=== PATIENT | male | born 1970 ===

== ENCOUNTER 2018-02-27 07:30 | Inpatient (IN) | payer OTHER ==
[2017-10-29 10:07] VITALS: BMI 29.6
[2018-03-05] MEDS ORDERED: Absorbable Gelatin Sponge Size 100 ONE ×2 (06:06→07:34)
[2018-03-05] MEDS ORDERED: Bupivacaine 0.25% 20 ML INJ IJ ONE ×2 (06:07→07:31)
[2018-03-05] MEDS ORDERED: Lidocaine/Epinephrine 1% 1:100000 10 ML IJ ONE (06:08)
[2018-03-05] MEDS ORDERED: Thrombin Topical 5,000 Int Units Spray Kit ONE (06:08)
[2018-03-05] MEDS ORDERED: Bacitracin Ointment 30 GM TUBE ONE (06:08)
[2018-03-05] MEDS ORDERED: Bupivacaine Liposomal Inj 20 ml INFIL ONE (07:21)
[2018-03-05] MEDS ORDERED: Bacitracin 50,000 UNIT in Sodium Chloride 0.9% Irrig 1,000 ML IR SCH (07:30)
[2018-03-05] MEDS ORDERED: Propofol 10 mg/ml 2,000 MG/200 ML VIAL ONE (07:35)
--- NOTE | 2018-03-05 08:09 | HP ---
HISTORY OF PRESENT ILLNESS: Mr. Valladares is a 47-year-old gentleman who injured himself from a construction accident. He fell off a roof landing approximately floor below. He fractured his right wrist and injured his back. This occurred on 05/26/2015. Since the accident, he was suffering with intrinsic low back pain in the lumbar area. He had some radiating pain to the left anterolateral thigh, anteromedial calf as well as the right anterior front of the thigh. His pain goes up to an 8 on a 0 to 10 scale, worsening if he is active, he cannot stand too long, he cannot sit too long. He has trouble finding a comfortable position. He has noted the feeling of what he calls tiredness in his low back when he walks. He was not able to return to work. He has failed rather extensive conservative treatment over this time including fair amounts of physiotherapy, he went for he estimates four different injections in his lumbar spine without much benefit. PAST MEDICAL HISTORY: Otherwise unremarkable. ALLERGIES: HE IS ALLERGIC TO ASPIRIN. He has no ongoing medical problems. No surgery other than from the right wrist. He does not smoke. He drinks socially. PHYSICAL EXAMINATION: He has tenderness to palpation in the mid to low lumbar spine. Range of motion is limited in extension, markedly limited in flexion, quite painful, bilateral rotation is limited as well. He does have 5/5 strength in the lower extremities. Straight leg raising on the left produces typical pain to approximately 35 degrees, equivocal on the right. Baseline gait is within normal limits. MRI documents L3-4 with a broad herniation bilateral foraminal stenosis, particularly on the right (L3 nerve root). L4-L5 is markedly desiccated with a broad herniation, bilateral foraminal stenosis, L5-S1 is within normal limits. I had a long discussion with Mr. Valladares, this occurs over several different office visits, giving him the option of operative intervention by diskectomy, decompression, interbody fusion, segmental pedicle screw fixation at the two pathologic levels i.e., L3-4, L4-5. Through a certified court/medical interpreter, we discussed the nature of his problem that he would undergo. We discussed potential risks, complications, realistic chance and excess recovery time, custodial outlook as well as alternatives. All his questions were answered. He fully understood the above and elected to proceed as offered and is now being admitted for L3-4 and L4-5 decompression, fixation and fusion. José Miguel Mcdonough MD
[2018-03-05] MEDS: ceFAZolin IV 1 gm in Dextrose 2 GM/100 ML BAG IVPB ONE ×2 (08:33→09:16)
[2018-03-05] MEDS: Bupivacaine 0.25% Inj(30mL) IJ ONE ×2 (09:10→13:04)
[2018-03-05] MEDS ORDERED: Propofol 10 mg/ml Inj (20 ML) ONE (12:04)
[2018-03-05] MEDS ORDERED: Propofol 10 mg/ml 1,000 MG/100 ML VIAL ONE (12:06)
[2018-03-05] MEDS ORDERED: Sodium Chloride 0.9% 20 ML IV ONE (13:00)
[2018-03-05] MEDS ORDERED: Epoetin Alfa Dialysis 20000 UNIT/ML Inj SC ONE (13:50)
[2018-03-05] MEDS ORDERED: HYDROmorphone 0.5 mg/0.5 ml ISec IVP PRN (13:53)
--- NOTE | 2018-03-05 14:23 | RAD ---
Date of service: 03/05/2018 PROCEDURE: Intraoperative Fluoroscopy. HISTORY: LUM DISC DESEASE FINDINGS: Fluoroscopic assistance was provided for Total fluoroscopic time (continuous mode) utilized during the procedure (seconds). 68.0.Please refer to the operative report from RUDDY Reddy. Total exam DLP: 26.93 (mGy)
[2018-03-05] MEDS: Potassium Ch 20mEq in D5-1/2NS 1,000 ML IV SCH (15:45)
[2018-03-05] MEDS: Ondansetron Hcl 2 mg/2.5 ml Oral Sol GT SCH (20:06)
[2018-03-06] MEDS: Potassium Ch 20mEq in D5-1/2NS 1,000 ML IV SCH ×3 (01:09→20:30)
[2018-03-06] MEDS: Ondansetron Hcl 2 mg/2.5 ml Oral Sol GT SCH ×3 (02:25→21:00)
--- NOTE | 2018-03-06 07:59 | OP ---
Copied To: José Miguel Mcdonough MD Attending MD: José Miguel Mcdonough MD PROCEDURE DATE: 03/05/2018 PREOPERATIVE DIAGNOSIS: Lumbar disk derangement. POSTOPERATIVE DIAGNOSIS Lumbar disk derangement.. PROCEDURE: L3-4, L4-5 decompression diskectomy, interbody fusion, segmental pedicle screw fixation, posterolateral fusion with iliac autograft. SURGEON: José Miguel Mcdonough MD CO-SURGEON: Moe Ramirez MD ANESTHESIA: General endotracheal. ESTIMATED BLOOD LOSS: 1500 mL, 750 mL returned via Cell Saver. COMPLICATIONS: None. JUSTIFICATION: The patient is status post an on-the-job accident, ever since he is suffering from severe low back pain, radiating pain to the extremities. Imaging workup with MRI documented annular tears at both L3-L4, L4-L5. The patient failed rather extensive conservative treatment. He was offered operative intervention by decompression fixation and fusion. The nature of this procedure, the rationale behind it, potential risks, complications, realistic chance, recovery time were discussed with him at length. All his questions were answered. He fully understood all the above, elected to proceed as offered. DESCRIPTION OF PROCEDURE: The patient was brought into the operating room, intubated, anesthetized. He was placed on the OR table in a prone position. He was hooked up to neurophysiological monitoring. Care was taken to protect his face, eyes, endotracheal tube, and all bony prominences. The entire low back was scrubbed with acetone and scrubbed, painted, and draped in usual sterile manner. Incision was localized with lateral fluoroscopy traced out, infiltrated with local anesthetic. An incision was made with a #15 blade knife, carried down to level of the fascia. The Bovie cautery was then used to incise the fascia and strip the paraspinal muscles off the spinous processes and lamina of L3, L4, and L5. The exposure was then widened out laterally bilaterally using Dumont elevators and Bovie cautery to expose the transverse processes of L3, L4, and L5. Bleeding controlled throughout with bipolar cautery. At this point, we performed bone harvestation. A 5-gauge trocar was inserted directly into the right superior posterior iliac crest. Approximately 120 mL of bone marrow were aspirated. This was then spun down to obtain bone marrow mesenchymal cells later used in the fusion. The decompression was begun with the Sandra and Keke rongeur, removing the top of the spinous process of L5, spinous process of L4, and the inferior L3. The Leksell and high-speed drill was used to thin down the bony elements. Laminectomy was then begun at the L4-5 interspace. Thecal sac was identified and protected throughout. Central laminectomy was performed all the way through the inferior two-thirds of the L3 lamina. This was then widened laterally bilaterally to perform generous medial facetectomies bilaterally at L3-4 and L4-5. This was again done with the use of a high-speed drill, various-sized Kerrison rongeurs. Foraminotomies were performed at the exiting L3-4 roots respectively. The L5 roots were uncovered in the canal and decompressed. At this point, the bleeding was controlled throughout with bipolar cautery. The patient had rather extensive venous complex, which entails a somewhat larger blood loss than typical in this procedure. At this point, the left L5 nerve root was gently retracted medially. The L4-5 disk was then incised grossly, emptied of disk material with the use of pituitary rongeurs. Then 8 mm to 11 mm ilene were used to further remove all annulus, disk material, and begin the decortication. We tried a 12, but it would not turn without digging into the endplate, thus we abandoned it. This identical procedure was performed on the right side, after which the disk was packed with bone grafting material, which included chopped up products of decompression, additional allograft, and marrow impregnated collagen hydroxyapatite sponges. A 9 x 11 mm carbon fiber fusion cage was then tapped into the interspace, filled with bone grafting material, until it was well-seated and countersunk and this identical procedure was performed back on the left side. Visual inspection lateral fluoroscopy confirmed excellent position of both these implants. We then began this procedure actually on the right side at L3-4, gently retracting the L4 nerve root medially, incising the disk grossly, emptied of disk material with the use of pituitary rongeurs. Then again straight upbiting curettes were used to remove the central disk herniation as well as lateral disk material. Decortication was then performed of the endplate above and below with a large curette. This identical procedure was then performed back on the left side, after which the disk space was packed with all bone grafting material and again a 9 x 11 mm cage was tapped into the interspace until it was well-seated and countersunk and then again this identical procedure was performed back on the patient's right side, Again, visual inspection lateral fluoroscopy confirmed excellent position of both these implants. At this point, we performed decortication of the lateral elements with a high-speed drill, which included the transverse process, lateral pars facet, lateral facet. We then placed pedicular screws using the technique of identifying the pedicular entrance visually and fluoroscopically using a high-speed drill to get through the cortical layer and passing the gearshift down the barrel of the pedicle into the vertebral body. We then used a ball-tip probe to sound the passage way to ensure there was no evidence of breach. Additionally, the gearshift and screws were stimulated with electrical current to ensure there was no evidence of breach by monitoring lower extremity EMG. Using this technique, we placed 6-mm diameter screws at all 6 points, i.e., the bilateral pedicles of L3, L4, and L5. These were of varying length between 40 and 50 mm. No screw elicited any EMG activity below 20 with the exception of the left L3 screw that the first pass was made a little bit medially, which we documented and aborted and then we obtained some stimulation of the screw and some not at a level of 12. We felt it was due to the previous breach, but we then checked both of course lateral and as well as AP fluoroscopy which showed excellent position of the screw and it could not be palpated internally with a Jaqueline instrument all around the pedicle. At this point, we placed the appropriate-sized titanium jabari into the three screw head receptacles on each side. Locking nuts were placed and torque-wrenched tight. We then packed all remaining grafting material into the lateral gutters to achieve the posterolateral fusion. We then ensure there was no remaining bone or foreign matter in and around the thecal sac. This was completely aligned and filled with thrombinated powdered Gelfoam. We then lastly placed the appropriate-sized cross connector and torque-wrenched its three connect screw locking sites. Final lateral and AP x-ray confirmed excellent position of the entire construct, that is all six screws, two locking rods, and the cross connector. At this point, hemostasis was achieved. The retractors were removed. The muscle reapproximated using interrupted 0 Vicryl. The fascia closed using tight interrupted 0 Vicryl stitch. The wound copiously irrigated with antibiotic solution. Subcu closed with 2-0 Vicryl. The skin closed with running 3-0 Monocryl stitch, benzoin, and Steri-Strips. Dressing was applied. The patient was turned back on to a supine position on a bed. He was easily extubated. He was noted to be moving all groups of both lower extremities with good strength in the recovery room. All counts were correct. Free-running EMG and somatosensory evoked potentials remained stable over the procedure. There were no complications. José Miguel Mcdonough MD
--- NOTE | 2018-03-06 08:33 | CP.PCM.PN ---
Subjective - Date & Time of Evaluation Date of Evaluation: 03/06/18 Time of Evaluation: 08:31 - Subjective Subjective: SPINE - POD #1 Pt resting in bed. Complains of signif pain at surg site. No radicular pain. [employer] not helping much. Voiding via mishra. No flatus yet. VSS. Temp 98-99. Moves all extremities actively. Neuro grossly intact.Plan: Clear liquids until + flatus. Change to oral analgesics. Begin PT Objective - Vital Signs/Intake and Output Vital Signs (last 24 hours): Temp Pulse Resp BP Pulse Ox 98.2 F 73 20 105/63 98 03/06/18 07:40 03/06/18 07:40 03/06/18 07:40 03/06/18 07:40 03/06/18 07:40 Intake and Output: 03/06/18 03/06/18 06:59 18:59 Intake Total 1400 Output Total 1800 Balance -400 - Medications Medications: Current Medications Acetaminophen (Tylenol 325mg Tab) 650 mg PO Q6 PRN PRN Reason: Fever >100.4 F Docusate Sodium (Colace) 100 mg PO BID [facility] Last Admin: 03/05/18 17:06 Dose: 100 mg Ferrous Sulfate (Feosol) 325 mg PO TID [facility] Last Admin: 03/05/18 17:06 Dose: 325 mg Hydromorphone/Sodium Chloride (Dilaudid Staffing Rn) 6 mg IV Q4H PRN; Protocol PRN Reason: Pain, severe (8-10) Last Admin: 03/05/18 15:50 Dose: 6 mg Potassium Chloride/Dextrose/Sod Cl (Potassium Chl 20 Meq In D5-1/2ns) 1,000 mls @ 100 mls/hr IV .Q10H [facility] Last Admin: 03/06/18 01:09 Dose: 100 mls/hr Ondansetron HCl (Zofran) 4 mg GT RQ6 [facility] Last Admin: 03/06/18 02:25 Dose: Not Given
[2018-03-06] MEDS: oxyCODONE 20 mg ER Tab (oxyCONTIN) PO SCH ×2 (09:33→21:24)
[2018-03-06] MEDS: Oxycodone/Acetaminophen 5/325 mg Tab PO PRN ×3 (12:35→19:03)
[2018-03-07] MEDS: Ondansetron Hcl 2 mg/2.5 ml Oral Sol GT SCH ×2 (02:00→07:43)
[2018-03-07] MEDS: Oxycodone/Acetaminophen 5/325 mg Tab PO PRN ×2 (06:02→19:26)
[2018-03-07] MEDS: Potassium Ch 20mEq in D5-1/2NS 1,000 ML IV SCH ×2 (06:38→17:53)
[2018-03-07 08:03] VITALS: RESP 20
[2018-03-07] MEDS ORDERED: Epoetin Alfa Dialysis 20000 UNIT/ML Inj SC ONE (10:00)
[2018-03-07] MEDS: oxyCODONE 20 mg ER Tab (oxyCONTIN) PO SCH ×2 (10:34→21:31)
[2018-03-07] MEDS ORDERED: Ondansetron HCl 4 mg/5 ml Oral Soln GT SCH (14:00)
[2018-03-08 00:44] VITALS: O2SAT 96
[2018-03-08] MEDS: Potassium Ch 20mEq in D5-1/2NS 1,000 ML IV SCH ×3 (02:00→11:30)
[2018-03-08] MEDS: Oxycodone/Acetaminophen 5/325 mg Tab PO PRN (05:48)
[2018-03-08 07:58] VITALS: BP 116/66; PULSE 85; TEMP 98.7
[2018-03-08] MEDS: oxyCODONE 20 mg ER Tab (oxyCONTIN) PO SCH (09:32)
--- NOTE | 2018-03-11 07:12 | OP ---
Copied To: Moe Ramirez MD Attending MD: Moe Ramirez MD PROCEDURE DATE: 03/05/2018 PREOPERATIVE DIAGNOSIS: Disk derangement L3-4, L4-5. POSTOPERATIVE DIAGNOSIS: Disk derangement L3-4, L4-5. OPERATIONS: 1. Posterior lumbar interbody and lateral fusion, L3-4, L4-5. 2. Use of intervertebral device. 3. Use of segmental spinal instrumentation. 4. Use of autograft by means of bone marrow aspiration. SURGEON: Moe Ramirez MD CO-SURGEON: José Miguel Mcdonough MD ANESTHESIA: General endotracheal tube intubation. DESCRIPTION OF PROCEDURE: The patient was brought to the operating room and general anesthesia was achieved. The spinal cord monitor leads were placed throughout the patient's body. Real time monitoring was done by quality systems technician in the room, remote monitoring by physician as well. Sequential compression boots were placed using the patient's legs and intravenous antibiotics were administered. After the antibiotics were given, a Gonzales catheter was inserted. The patient was then gently transferred on to the operating table and placed prone on a Diaz frame keeping his abdomen free from pressure anteriorly. Care was taken to protect the elbows and knees from pressure points and a Steri-Drape was used to seal off the patient's perineal region from the operative field. His back was sterilely prepped and draped. Lidocaine with epinephrine was used to infiltrate the site for the incision as located under fluoroscopy. An incision was then made sharply in the midline. This was taken out subcutaneous tissue using sharp and blunt dissection. Hemostasis was achieved using electrocautery. The fascia was divided and muscle stripped laterally off the spinous processes and lamina out to the level of the transverse prostheses on each side of L3 through L5. Soft tissue attachments were cleared using electrocautery and Dumont elevators. Again, fluoroscopic views were taken which verified we were at the appropriate levels. A Leksell rongeur was used to remove the spinous processes and thinned down the lamina and the laminectomy was then carried out in a caudocephalad fashion. This was first done in the midline and then taken out laterally on each side with foraminotomies being done until we could easily pass a Jaqueline tool out each neural foramina. The disk spaces were identified at L3-4 and L4-5 and the laminectomy carried out widely enough distally until we could easily pass the broach indicative of enough room for subsequent passage of the cages. Hemostasis was achieved with bipolar cautery as well as thrombin in Gelfoam powder. At that time, a trocar was placed in the posterior right ilium and 120 mL of bone marrow aspirate was obtained. This was sterilely passed off to the quality systems technician to process it through the harvest system. The collecting mesenchymal stem cells were then returned to the OR table and used to process through the IC chamber as well as soaked cubes and strips of CONFORM hydroxyapatite sponge. Thrombinated Gelfoam powder was used for hemostasis at the marrow donor site. The patient's laminar bone along with the IC chamber bone and Optium putty were combined to create a bone grafting substrate. We then proceeded with the interbody fusion. The thecal sac was gently retracted and the annulus incised and disk material removed with pituitary rongeur and the endplate ilene up to including a size 11. Ring and spoon curettes were used to remove any remaining tissue from the endplates. We then moved over to the right side, where in similar fashion the annulus was incised and the remaining disk material removed with the endplate ilene and the pituitary rongeur along with the ring and spoon curettes. The bone grafting substrate and marrow-soaked cubes of CONFORM were packed at the disk space and a 9 x 11 cage packed with a bone graft was inserted and countersunk. We then moved back to the left side and inspected for any remaining disk material and once that was done again packed CONFORM cubes and the bone grafting substrate into the disk space as well as insert a 9 x 11 cage packed with graft. We then moved up to the L3-4 level. A similar technique was used in terms of incising the annulus and removing the disk material with the endplate ilene again up to and including a size 11 along with the pituitary rongeur and the ring and spoon curettes. We then moved back over to the right side and removed the remaining disk. The remaining marrow-soaked CONFORM cubes and bone grafting substrate along with a 9 x 11 cage were then packed into place on each side. Visually, all cages appeared to be in good position. We then proceeded with a posterolateral fusion. A high-speed drill was used to decorticate the L3-4 and L4-5 facet joints along with the transverse processes on each side of the L3, L4, and L5. Under fluoroscopic guidance, the entry point for the right L3 pedicle was noted and made and created with the drill. The gearshift to create a channel through the pedicle and the bony integrity was confirmed with a ball-tip probe. A 6 x 40 mm expedient screw was inserted on the right side. The same technique was used on the left side and a 6 x 45 mm screw was inserted. Stimulation in the gearshift 2 on each side as well as the shank top of each screw revealed no abnormalities. We then moved down to the L4 level where again the high-speed drill was used on each side to create the entry point located under fluoroscopy. The gearshift 2 on the ball-tip probe was used to create and confirm the channel and a 6 x 50 mm screws were used on the right side and a 6 x 45 mm screw used on the left. Again, the stimulation revealed no electrophysiologic abnormalities. The final level was done at L5 with the same technique of using the high-speed drill to create the entry point for the pedicle. We tried to line this up with the previously placed two screws as well in order to ease placement of the jabari. The gearshift 2 was used to create the channel through each pedicle and the bony integrity confirmed and 6 x 45 mm Expedient screws inserted on each side. Again, stimulation revealed no abnormalities. AP view showed good position of the hardware as well. A 75 mm were used to connect the three screws on each side. The caps were placed and tightened and torqued appropriately. The midline was inspected for any debris and irrigated. Bipolar cautery and thrombinated Gelfoam powder was used for hemostasis. A large piece of solid Gelfoam was used to cover the exposed neural elements. A #7 Matrix cross-link was then applied to add rotational stability to the construct. The remaining strips of CONFORM and bone grafting substrate were packed laterally to bridge the decorticated transverse processes as well as into the decorticated joints. Final AP and lateral fluoroscopic views showed excellent position of the hardware and the intravertebral devices. The wound was then closed in layers with interrupted sutures of #0 Vicryl for the muscle and the fascia. The subcutaneous tissue was copiously irrigated with antibiotic solution. 20 mL of EXPAREL dilution with normal saline was injected into the paraspinal tissues to help with postoperative pain relief. 20 mL of 0.5% Marcaine was also injected. The subcutaneous tissue was closed with interrupted sutures of 2-0 Vicryl and the skin was approximated with a running subcuticular suture of 3-0 Monocryl. Steri-Strips and a sterile dressing were applied. The patient was gently transferred back on to his bed in the supine position. He was awakened and extubated. He was taken to recovery in stable condition having tolerated the procedure well. Estimated loss was 1500 mL. He received 3400 mL of crystalloid during the surgery as well as 750 mL back from the Cell Saver. He had a urine output of 150 mL. He was actively moving all extremities at the time of his transfer and no permanent electrophysiologic abnormalities were noted at the completion of the case. Moe Ramirez MD
== END 2018-03-08 12:14 | disposition home or self-care (01) | DRG 460 ==
LOC: C.9S 03-05 05:53 → C.6T 03-05 13:37
PROVIDERS: ADMIT Neurological Surgery; ATTEND Neurological Surgery
PROC: 0SG10AJ Fusion of 2 or more Lumbar Vertebral Joints with Interbody Fusion Device, Posterior Approach, Anterior Column, Open Approach (ICD-10-PCS; 2018-03-05)
PROC: 0SG107J Fusion of 2 or more Lumbar Vertebral Joints with Autologous Tissue Substitute, Posterior Approach, Anterior Column, Open Approach (ICD-10-PCS; 2018-03-05)
PROC: 0SB20ZZ Excision of Lumbar Vertebral Disc, Open Approach (ICD-10-PCS; principal; 2018-03-05 07:30)
DX: M51.16 Intervertebral disc disorders with radiculopathy, lumbar region (principal); Z91.81 History of falling